=== PATIENT | female | born 1980 | race Caucasian/White ===

== ENCOUNTER 2021-03-02 09:52 | Emergency (ER) | payer OTHER ==
[~2021-03-02] VITALS: Ht 161.3 cm; Wt 47.7 kg
[2021-03-02 10:15] VITALS: BP 123/74
[2021-03-02] MEDS ORDERED: NAPROXEN 500 MG TABLET PO STA (10:37)
[2021-03-02] MEDS ORDERED: HYDROcodone/APAP 5/325MG 1 TAB TABLET PO ONE (10:45)
--- NOTE | 2021-03-02 10:47 | PHYS DOC ---
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 Patient describes the pain as sharp and constant worse on touching the lateral aspect of the ankle as well as weightbearing. Denies anything relieving the pain (MELITON CROCKETT [place] [employer] HAND[employer] SUPERVISOR) Review of Systems: Review of Systems: Constitutional: Denies fever or chills. [] Musculoskeletal: Reports left ankle pain Integument: Denies rash. [] Neurologic: Denies headache, focal weakness or sensory changes. [] = Psychiatric: Denies depression or anxiety. [] (MELITON CROCKETT GENER[employer] HANDLING SUPERVISOR) Heart Score: C/O Chest Pain: N/A Risk Factors: Risk Factors: DM, Current or recent (<one month) smoker, HTN, HLP, family history of CAD, obesity. 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[place] [employer] SUPERVISOR) Current Medications: Current Medications Medications (Trade) Dose Ordered Sig/Alberto Start Time Stop Time Status Last Admin Dose Admin Acetaminophen/ Hydrocodone Bitart (Lortab 5/325) 1 tab 1X ONCE 03/02/21 10:45 03/02/21 10:46 Naproxen (Naprosyn) 500 mg 1X STAT 03/02/21 10:37 03/02/21 10:42 DC (MELITON CROCKETT [place] [employer] SUPERVISOR) Allergies: Allergies: Allergies Coded Allergies Type Severity Reaction Last Updated Verified No Known Drug Allergies 01/13/14 No (MARIELADANIEMELITON Guadalupe APRN) Physical Exam: PE: Constitutional: Well developed, well nourished, no acute distress, non-toxic a ppearance. Skin: Warm, dry, no erythema, no rash. [] Extremities: Left lower extremity with no obvious deformity. No bruising, no ecchymosis, soft tissue swelling noted on the left lateral ankle. Tenderness on palpation of the left lateral ankle. No tenderness on the base of the fifth metatarsal of the left foot, no tenderness on the navicular bone. +2 left pedal pulse. Cap refill less than 2 seconds to left toes. Full range of motion to the left toes, limited range of motion to the left ankle. Neurologic: Alert and oriented X 3, normal motor function, normal sensory function, no focal deficits noted. [] Psychologic: Affect normal, judgement normal, mood normal. [] (MELITON CROCKETT APRN) Current Patient Data: Vital Signs: Vital Signs Date Time Temp Pulse Resp B/P (MAP) Pulse Ox O2 Delivery O2 Flow Rate FiO2 03/02/21 10:15 98.6 69 16 123/74 (90) 98 Room Air 98.6 (MELITON CROCKETT APRN) EKG: EKG: [] (MELITON CROCKETT APRN) Radiology/Procedures: Radiology/Procedures: []PROCEDURE: FOOT LEFT 3V EXAM: Left ankle, 3 views; left foot, 3 views. HISTORY: Pain. COMPARISON: None. FINDINGS: 3 views of the left foot and ankle are obtained. There is no acute fracture, dislocation or subluxation. There is an incidental accessory navicular. The ankle mortise is intact. IMPRESSION: No acute osseous finding. Electronically signed by: Sabrina Jeffery MD (03/02/2021 11:01 AM) [facility] DICTATED and SIGNED BY: SABRINA JEFFERY MD DATE: 03/02/21 [id number] (MELITON CROCKETT APRN) Course & Med Decision Making: Course & Med Decision Making Pertinent Labs and Imaging studies reviewed. (See chart for details) This is a 40-year-old female patient presented to the ED today with left ankle pain after missing a step and rolling the ankle. Left foot and left ankle xrays are negative for any acute findings. Alexi bandage and Aircast applied to the left foot/ankle by the ED RN, neurovascular exam is intact, ice elevation encouraged, crutches provided. Discharged home. OTC pain relievers. Ortho for follow-up (MELITON CROCKETT APRN) Dragon Disclaimer: Dragon Disclaimer: This electronic medical record was generated, in whole or in part, using a voice recognition dictation system. (MELITON CROCKETT APRN) Departure Departure Impression: Primary Impression: Left ankle sprain Qualified Codes: S93.402A - Sprain of unspecified ligament of left ankle, initial encounter Additional Impression: Sprain of left foot Qualified Codes: S93.602A - Unspecified sprain of left foot, initial encounter Disposition: HOME / SELF CARE / HOMELESS Condition: STABLE Referrals: ANA TRIPP MD Follow-up in 1 to 2 weeks if pain persists Patient Instructions: Ankle Sprain, Foot Sprain Additional Instructions: You were seen for left foot and left ankle pain, left foot and left ankle x-rays are negative for any acute findings, you likely have a sprain. Try to wrap the foot and ankle with the Alexi bandage provided and wear the Aircast. You can bear weight to the left lower extremity as tolerated. Take [id number] pain relievers as needed especially anti-inflammatories. Follow-up with orthopedic doctor or your own doctor in 1 week if pain persist Attending Signature Attending Signature I have participated in the care of this patient and I have reviewed and agree with all pertinent clinical information above including history, exam, and recommendations. (MARCIA HUITRON DO) MELITON CROCKETT APRN March 02, 2021 10:47 MARCIA HUITRON DO March 02, 2021 17:39
--- NOTE | 2021-03-02 11:04 | RAD ---
EXAM: Left ankle, 3 views; left foot, 3 views. HISTORY: Pain. COMPARISON: None. FINDINGS: 3 views of the left foot and ankle are obtained. There is no acute fracture, dislocation or subluxation. There is an incidental accessory navicular. The ankle mortise is intact. IMPRESSION: No acute osseous finding. Electronically signed by: Safia Martinez MD (03/02/2021 11:01 AM) [facility]
== END 2021-03-02 11:38 | disposition home or self-care (01) ==
LOC: ER 09:52
DX: S93.402A Sprain of unspecified ligament of left ankle, initial encounter (principal); S93.602A Unspecified sprain of left foot, initial encounter; J45.909 Unspecified asthma, uncomplicated; F17.200 Nicotine dependence, unspecified, uncomplicated; X50.9XXA Other and unspecified overexertion or strenuous movements or postures, initial encounter; Y93.89 Activity, other specified; Y92.89 Other specified places as the place of occurrence of the external cause; Y99.8 Other external cause status
CPT/HCPCS: 29515; 73610; 73630; 99284

== ENCOUNTER → 2022-01-24 | Outpatient (CLI) | payer OTHER ==
[2022-01-24 12:34] LABS: BASO % 1 % (0-3); EOS # 0.1 x10^3/uL (0.0-0.7); EOS % 1 % (0-3); HEMATOCRIT 43.1 % (36.0-47.0); HEMOGLOBIN 14.6 g/dL (12.0-15.5); LYMPH # 1.8 x10^3/uL (1.0-4.8); LYMPH % 27 % (24-48); MEAN CORPUSCULAR HEMOGLOBIN 33 pg (25-35); MEAN CORPUSCULAR HGB CONC 34 g/dL (31-37); MEAN CORPUSCULAR VOLUME 97 fL (79-100); MONO # 0.6 x10^3/uL (0.0-1.1); MONO % 9 % (0-9); NEUT # 4.1 x10^3/uL (1.8-7.7); NEUT % 62 % (31-73); PLATELET COUNT 244 x10^3/uL (140-400); RED BLOOD COUNT 4.45 x10^6/uL (3.50-5.40); WHITE BLOOD COUNT 6.6 x10^3/uL (4.0-11.0)
[2022-01-24 12:53] LABS: ALBUMIN 4.2 g/dL (3.4-5.0); ALBUMIN/GLOBULIN RATIO 1.2 (1.0-1.7); CALCIUM 9.1 mg/dL (8.5-10.1); CREATININE 0.6 mg/dL (0.6-1.0); GFR 110.2; POTASSIUM 3.8 mmol/L (3.5-5.1); TOTAL BILIRUBIN 0.8 mg/dL (0.2-1.0); TOTAL PROTEIN 7.7 g/dL (6.4-8.2)
--- NOTE | 2022-01-24 12:54 | RAD ---
XR CHEST 2V INDICATION: Preoperative: . COMPARISON STUDY: None. FINDINGS: Lungs: Normal lung volume. No pulmonary mass or consolidation. The tracheobronchial tree and hilar st ructures are normal. Pleura: No pleural effusion or pneumothorax. Heart and Mediastinum: The cardiomediastinal silhouette is normal. The great vessels of the thorax ar e normal. Bones and Soft Tissues: The bones and soft tissues are within normal limits. IMPRESSION: No acute cardiopulmonary process. Electronically signed by: Rocco Cornelius MD (01/24/2022 12:51 PM) [id number]
[2022-01-24 13:22] LABS: BACTERIA,URINE 0 /HPF (0-FEW); RBC,URINE 0 /HPF (0-2); WBC,URINE OCC /HPF (0-4)
== END ==
LOC: SURGPAT 11:46
PROVIDERS: ATTEND Obstetrics & Gynecology
DX: Z01.818 Encounter for other preprocedural examination (principal); F17.200 Nicotine dependence, unspecified, uncomplicated
CPT/HCPCS: 36415; 71046; 80053; 81001; 85025

== ENCOUNTER 2022-01-29 06:04 | Observation (INO) | payer OTHER ==
[2022-01-24 12:39] VITALS: BP 128/71
[2022-01-29] VITALS (9 sets, daily range): BP systolic 100–129; BP diastolic 56–82
[~2022-01-29] VITALS: Ht 160 cm; Wt 54.5 kg
[~2022-01-29 06:04] MED LIST: HYDROmorphone 2 MG/ML INJ. IVP PRN; IV RINGERS,LACTATED 1000ML 1,000 ML IV SCH; MORPHINE SULFATE 2 MG/ML INJ. IVP PRN; PROCHLORPERAZINE 10 MG/2 ML VIAL. IVP PRN; fentaNYL PF VIAL 100 MCG/2 ML VIAL IVP PRN
[2022-01-29] MEDS ORDERED: ROCURONIUM 50 MG/5 ML VIAL. ONE (06:46)
[2022-01-29] MEDS ORDERED: fentaNYL PF VIAL 100 MCG/2 ML VIAL ONE (06:47)
[2022-01-29] MEDS ORDERED: ESTROGENS, CONJ VAGINAL CREAM 30GM TUBE. ONE (07:04)
[2022-01-29] MEDS ORDERED: INDIGOTINDISULFONATE SODIUM 40 MG/5 ML AMPUL. ONE (07:04)
[2022-01-29] MEDS ORDERED: BUPIVACAINE-EPI 0.25% 30 ML VIAL KIT. ONE (07:04)
[2022-01-29] MEDS ORDERED: PROPOFOL 10 MG/ML (20ML) VIAL. IV ONE (07:15)
[2022-01-29] MEDS ORDERED: ONDANSETRON PF 4 MG/2 ML VIAL. ONE (07:15)
[2022-01-29] MEDS ORDERED: DEXAMETHASONE SOD PHOS 4 MG/ML VIAL ONE (07:15)
[2022-01-29] MEDS ORDERED: GLYCOPYRROLATE 1 MG/5 ML VIAL. ONE (07:16)
[2022-01-29] MEDS ORDERED: NEOSTIGMINE METHYLSULFATE 5 MG/5 ML SYRINGE. ONE (07:17)
[2022-01-29] MEDS ORDERED: HYDROmorphone 2 MG/ML INJ. ONE (08:09)
[2022-01-29] MEDS ORDERED: ceFAZolin SODIUM IV Push 1 GM VIAL. IVP ONE (11:08)
[2022-01-29] MEDS ORDERED: diphenhydrAMINE HCL 25 MG CAPSULE PO PRN (11:30)
[2022-01-29] MEDS ORDERED: NALOXONE 0.4 MG/ML VIAL. IV PRN (11:30)
[2022-01-29] MEDS ORDERED: ONDANSETRON PF 4 MG/2 ML VIAL. IV PRN (11:30)
[2022-01-29] MEDS ORDERED: LACTULOSE 20 GM/30 ML SOLUTION. PO PRN (11:30)
[2022-01-29] MEDS ORDERED: ZOLPIDEM 5 MG TABLET. PO PRN (11:30)
[2022-01-29] MEDS ORDERED: MAG HYDROX/ALUMINUM HYD/SIMETH 30 ML ORAL.SUSP PO PRN (11:30)
[2022-01-29] MEDS ORDERED: diphenhydrAMINE 50 MG/ML VIAL IV PRN (11:30)
[2022-01-29] MEDS ORDERED: CALCIUM CARBONATE 500 MG TAB.CHEW PO PRN (11:30)
[2022-01-29] MEDS ORDERED: SIMETHICONE 80 MG TAB.CHEW PO PRN (11:30)
[2022-01-29] MEDS ORDERED: MAGNESIUM HYDROXIDE 2,400 MG/30 ML ORAL.SUSP. PO PRN (11:30)
[2022-01-29] MEDS ORDERED: HYDROcodone/APAP 5/325MG 1 TAB TABLET PO PRN (11:30)
[2022-01-29] MEDS ORDERED: 0.9 % SODIUM CHLORIDE 10 ML DISP.SYRIN. IV PRN (11:30)
--- NOTE | 2022-01-29 11:38 | PDOC4 ---
OPERATIVE NOTE Pre-Op Diagnosis: Cystotomy Post-Op Diagnosis: Cystotomy Procedure Performed: 1. Cystoscopy 2. Bilateral ureteral catheter placement 3. Laparoscopic remair of bladder laceration Surgeon: Sameer Davies MD Anesthesia Type: Genaral Blood Loss: None Specimans Obtained: None Findings: Small bladder laceration left dome Complications: None Operative Note: Patient on operating room table in low lithotomy position and slight Trendelenburg. Laparoscopic ports are in place from previously done hysterectomy. Using 21 Ugandan rigid cystoscope cystoscopy was performed. I cannot appreciate obvious defect at the bladder just faint abnormality on the left side of the dome. It appears to be very small. 0.035 guidewire was placed into left ureter followed by 5 Ugandan open-ended catheter. We can observe catheter passing through intra-abdominal portion of the ureter without difficulty. Catheter was then removed from the left ureter. In identical fashion 5 Ugandan open-ended catheter was placed into the right ureter which appeared to be intact as well. Open-ended catheters were removed. 16 Ugandan Rod catheter was replaced. Left 5 mm laparoscopic port was exchanged to a 12 mm laparoscopic port and using 3-0 chromic catgut sutures obvious bladder defect at the dome of the bladder was closed in 2 layers. Bladder was distended to its capacity with irrigation. No leak of irrigation fluid was observed. 16 Ugandan Adithya-Redman drain was placed in the dependent portion of the pelvis serial right lateral laparoscopic port. 12 mm laparoscopic port was removed in that area narrowed down with 2 interrupted Vicryl sutures using a Sameer-Benjamin device. Patient was returned to [employer] team for completion of skin closure. Drain was fixed to the skin was nylon sutures. SAMEER DAVIES MD Jan 29, 2022 11:38
--- NOTE | 2022-01-29 11:52 | PDOC4 ---
BRIEF OPERATIVE NOTE Date: Jan 29, 2022 Pre-Op Diagnosis pelvic pain, dysmenorrhea, menorrhagia Post-Op Diagnosis same plus noticed incidential cystotomy so intraoperative urology consult for repair of bladder Procedure Performed LAVH/bilateral salpingectomy/cystoscopy Surgeon Dr. Johanna Bain; then intraoperative consult with urology Dr. Davies Sheet Metal Superintendent СВЕТЛАНА Hernández Anesthesiologist Dr. Gunderson Anesthesia Type: General Blood Loss 50cc IV Fluid see anesthesia Urine Output 150cc clear via lopez but bag with air in it at end of case Specimens Obtained cervix, uterus, bilateral tubes Findings omental abdominal wall adhesions, scarring of right tube; normal uterus, thinned bladder wall; incidental cystotomy noted after going back and looking abdominally and using cystoscope to watch in fill the bladder Complications none, noted incidental cystotomy at end of case when lopez bag had air; discovered thinned wall where bladder peeled off uterus at left upper dome area; normal ureters, urology called to fix laparoscopically Operative Note [id number] JOHANNA BAIN MD Jan 29, 2022 11:52
--- NOTE | 2022-01-29 12:49 | NUR ---
Received patient from PACU. Patient awake but drowsy. \assessment foen . Patient denies pain just feels like she needs to void. Rod is draining at this time. Plan discussed
[2022-01-29] MEDS: MORPHINE SULFATE 2 MG/ML INJ. IV PRN ×2 (13:58→17:07)
--- NOTE | 2022-01-29 16:34 | OP ---
DATE OF SURGERY: 01/29/2022 PREOPERATIVE DIAGNOSES: Pelvic pain, dysmenorrhea, menorrhagia, prior sections, prior Essure sterilization, desiring coils out. POSTOPERATIVE DIAGNOSES: Pelvic pain, dysmenorrhea, menorrhagia, prior sections, prior Essure sterilization, desiring coils out plus an incidental cystotomy that was noted intraoperatively. Upon closing with the Rod bag full of air, a cystoscopy was performed to insufflate the bladder and find the opening at the left dome of the bladder. Intraoperative consultation with Urology, Dr. Davies was done for repair of the bladder. Please see his operative note for that. PROCEDURE: Laparoscopic-assisted vaginal hysterectomy, bilateral salpingectomy and cystoscopy. SURGEON: Johanna Bain MD. BUSINESS PROPOSAL REP: СВЕТЛАНА Carrasco ANESTHESIOLOGIST: Tobin Gunderson MD ANESTHESIA: General. BLOOD LOSS: 50 mL. URINE OUTPUT: Initially was 150 mL clear via Rod, but again that is when the bag was noted to be full of air at the end of the case, so went back in to discover the opening in the dome of the left side of the bladder. SPECIMEN: Cervix, uterus, bilateral tubes. FINDINGS: She had omental anterior abdominal wall adhesions that were taken down, scarring of the right fallopian tube. Normal uterus. The bladder was scarred custodial up the anterior of the uterus that was taken down and there was a thin bladder wall from prior sections and then again the incidental cystotomy that was noted after going back and looking abdominally using the cystoscope after finding the Rod catheter bag full of air at the end. COMPLICATIONS: None other than that incidental cystotomy that was noted as above. DESCRIPTION OF PROCEDURE: This patient was taken to the operating room where general anesthesia was placed. The patient was placed in dorsal lithotomy position in [facility]. The patient's abdomen and vagina were both prepped and draped in the normal sterile fashion and a Rod catheter had been inserted under sterile technique. Upon my arrival, a timeout was performed. Once everyone agreed on the patient, the site, the procedure, the antibiotics, the procedure was initiated. A bivalve speculum was placed in the patient's vagina. A single-tooth tenaculum was used to grasp the anterior lip of the cervix. 10 mL of 0.25% Marcaine with epinephrine was used to circumferentially inject around the cervix for both hemodissection and hemostatic purposes later. The Valtchev uterine manipulator was placed through the endocervical os, locked on the single tooth tenaculum and the bivalve speculum was then removed. Top gloves were discarded and changed. Attention was then turned to the abdomen where a small infraumbilical skin incision was made with the scalpel. A curved Melita was used to dissect through the subcuticular layer to the fascia. The 5 mm Visiport bladeless trocar was used to directly enter the abdominal cavity. Opening patient pressure was 2-3 mmHg. Carbon dioxide gas was used to appropriately insufflate the abdominal cavity to maintain a pressure of 15 mmHg. Overhead lights were dimmed and Trendelenburg position was obtained. Left and right lower quadrant ports were placed under direct visualization where there were no adhesions transilluminating the abdominal wall, finding an area clear of any vasculature, making a small incision and placing the 5 mm atraumatic trocars and under direct visualization, 4-5 mL of air was placed in the trocar cuff on both sides. The camera was then moved laterally to look at the umbilical port as well and once it was clear, it was also insufflated with the 4-5 mL of air in the trocar cuff. Once this was done, the right upper quadrant was grossly normal. Bowel was grossly normal. Omental adhesions were taken down with the LigaSure. They were all omental. This allowed us to get to the uterus and ovaries. She had a retroverted uterus, normal left tube and ovary, normal right ovary, right tube was somewhat scarred over to the sidewall and back, but this was easily taken down, both ureters were seen coursing low in the pelvis peristalsing clearly out of the way and low, so the right tube and ovary was elevated going above the ovary, below the tube doing a salpingectomy taking that adhesion down, getting the tube crossing the right uteroovarian pedicle leaving the ovary per patient request with the LigaSure, cauterizing and cutting, then crossing the right round ligament as well, cauterizing and cutting. At this point, the left tube and ovary were elevated. Again, the ureter was clearly seen going above the ovary, below the tube with the LigaSure, cauterizing and cutting, doing a salpingectomy, crossing the left uteroovarian pedicle, cauterizing and cutting and the left round ligament, cauterizing and cutting. The bladder was elevated with the [place] and the monopolar hook was used to go across and take down the bladder sharply from the uterus to the bladder and it was peeled down using the Maryland to peel it down. Once it was down, the vessels were obtained on both sides and going down, hugging the uterus and making sure the bladder was down the whole time, hugging the uterus, getting the vasculature on the left side. Once this was done, the right uterine vessels were obtained and then hugging posteriorly on the cervix and uterus, going through the cardinal and broad ligaments, cauterizing and cutting. The uterus was completely free and blanched. There was no active bleeding, so all instruments were removed from the abdomen and attention was turned vaginally. At this point, the Valtchev and single tooth were removed. A weighted speculum was placed in the patient's vagina. Overhead lights were back on. Thyroid Ujng clamps were placed on the anterior and posterior lips of the cervix, respectively. A scalpel was used to make a circumferential incision in the cervix. An open Ray-Chelsie 4 x 4 was used to gently push up the anterior bladder peritoneum. The anterior cul-de-sac was entered sharply with the Metzenbaum scissors and the curved Yves was placed here and the Ray-Chelsie was passed back off. The cervix was elevated and the posterior cul-de-sac was sharply entered with curved Alberto scissors and extended bilaterally. A #0 Vicryl stitch was used to secure the posterior peritoneum here to the vaginal cuff. It was tagged with a curved Melita clamp and the needle was cut and passed off. The short weighted vaginal speculum was removed and replaced with the long weighted Jacinta speculum in the posterior cul-de-sac. At this point, curved Alberto clamps x2 were placed on the patient's left uterosacral ligament where they were doubly clamped with curved Heaneys, cut with curved Alberto scissors and suture ligated x2 with 0 Vicryl. Second one was taken through the vaginal cuff, securing uterosacral ligament to the vaginal cuff. This was done exactly the same on the right side, double clamping the uterosacrals with curved Alberto's, cutting with curved Alberto scissors and suture ligating x2 with 0 Vicryl, taking the second one through the vaginal cuff the vaginal cuff. At this point, the right angle Mixter was taken around the remaining pedicle on the left side and the vaginal LigaSure was used to cauterize and cut the remaining pedicle. The cervix, uterus, bilateral tubes were delivered in total. There was nothing remaining on the right side. The long Allis was used to grasp the anterior bladder peritoneum. The long Jacinta speculum was removed and replaced with the short weighted vaginal speculum in the vagina. A sponge stick was used to examine the pedicles. Once they were assured to be dry, 2-0 Vicryl was taken through the anterior bladder peritoneum, left uterosacral ligament, posterior peritoneum and right uterosacral ligament, thus closing the peritoneum in a pursestring like fashion. The cuff was closed in an anterior to posterior running locked fashion with a full length 2-0 Vicryl and it was tied to the posterior cuff tag. There was no bleeding. Everything was hemostatic. All counts were correct x2 by OR personnel below. All gloves were discarded and changed and attention was turned back above for a second look. Overhead lights were re-dimmed. The patient was placed in Trendelenburg. Gas was reinsufflated to look at the vaginal cuff. Copious irrigation revealed hemostasis. Right and left pericolic gutters were clear. Tip of the appendix was normally seen. Right upper quadrant was grossly normal. Tisseel was placed over the vaginal cuff. Both ovaries were hemostatic and dry. Everything actually looked great, so we deflated the cuffs on all 3 trocars. Right and left lower quadrant ports were removed under direct visualization. Gas was released from the umbilical port and just as I was getting ready to leave and I was asking urine output and blood loss, there was clear bladder and the bladder bag, but it was full of air. So I went ahead and put back in the trocars, looked again, there was no extravasation of urine, nothing collecting in the abdominal cavity, but clearly they emptied it and it was refilling full of air, so there had to have been some sort of an opening to allow the laparoscopic gas to get into the bladder bag, so I got a cystoscopy, performed cystoscopy and originally, the trigone was seen. Ureter openings were seen. Bladder bubble was seen, but I had Laurie above looking laparoscopically and it was not until the bladder was completely distended at the left dome of the bladder that it was obvious where the clear fluid was coming from at the dome of the bladder. At this point, Urology was called in to help laparoscopically fix this opening. It looked like it was from where the bladder was peeled down off the uterus very high up on the left dome, so everything was taken out and the patient was allowed to sit because unfortunately it took, you know, 40-50 minutes for them to come here and arrive and start operating, went out and discussed this with her mother in the waiting room, so she was aware of what was going on and that the patient was stable and that we were waiting for Urology. Once Urology got here, he did do the laparoscopic suturing with chromic. Please see his operative note. He did have to replace my left lower quadrant port with a 10/12 instead of my 5. He did all this. He also used the laparoscopic suturing to close the fascia on that port when he took it out. Once he took it out and had used cautery, made sure that that was all hemostatic and he had put a drain through the right lower quadrant port and CHARY drain. We had that out and we had deflated it and taken all the other ports out, then closed the ports at the end with Monocryl and put a drain stitch on that right side. Obviously, the Rod catheter was placed back in after his cystoscopy. He had put stents in but removed them, that is all per his note and the bladder catheter will be left in and she will be on antibiotics for 10-14 days, but like I said Monocryl was used to close the laparoscopic ports after he had closed that left one with Vicryl under direct visualization and the port sites had been injected upon insertion , so a total of 16 mL of local 10 below and 6 above was used. Once this was all done, the patient tolerated the procedure well. She was awakened from anesthesia and has been brought to recovery room in stable condition. JASBIR/ANNE/ROBERTA FIGUEREDO: Gala TID: [id number]
[2022-01-29] MEDS: oxyCODONE/APAP 5/325 1 TAB TABLET PO PRN (21:01)
[2022-01-29] MEDS: NITROFURANTOIN MONOHYD/M-CRYST 100 MG CAPSULE. PO SCH (21:01)
[2022-01-29] MEDS: OXYBUTYNIN CHLORIDE 5 MG TABLET PO SCH (22:50)
[2022-01-30 01:30] VITALS: BP 122/62
[2022-01-30 06:47] VITALS: BP 111/62
[2022-01-30] MEDS: oxyCODONE/APAP 5/325 1 TAB TABLET PO PRN ×4 (06:52→23:47)
[2022-01-30 08:13] LABS: CALCIUM 8.2 mg/dL (8.5-10.1); CREATININE 0.6 mg/dL (0.6-1.0); GFR 110.2; POTASSIUM 4.2 mmol/L (3.5-5.1)
[2022-01-30 08:28] LABS: HEMATOCRIT 35.8 % (36.0-47.0); HEMOGLOBIN 11.9 g/dL (12.0-15.5); RED BLOOD COUNT 3.61 x10^6/uL (3.50-5.40); RED CELL DISTRIBUTION WIDTH 12.9 % (11.5-14.5); WHITE BLOOD COUNT 9.4 x10^3/uL (4.0-11.0)
[2022-01-30] MEDS: OXYBUTYNIN CHLORIDE 5 MG TABLET PO SCH ×3 (08:52→21:23)
[2022-01-30] MEDS: NITROFURANTOIN MONOHYD/M-CRYST 100 MG CAPSULE. PO SCH ×2 (08:52→21:24)
--- NOTE | 2022-01-30 11:37 | PDOC ---
SURGICAL PROGRESS NOTE DATE: 01/30/22 TIME: 11:31 Subjective doing ok. Sore and slow to move. Scant VB. Main complaint was bladder spasms last night but the oxybutynin helped a lot and the CHARY drain bothers her too bc she likes to sleep on her side Good UOP via catheter. tolerating PO. Vital Signs Vital Signs Date Time Temp Pulse Resp B/P (MAP) Pulse Ox O2 Delivery O2 Flow Rate FiO2 01/30/22 08:38 Room Air 01/30/22 06:52 18 97 10.0 01/30/22 06:47 99.0 68 111/62 (78) 99.0 I&O Intake and Output 01/30/22 07:00 Intake Total 2510 ml Output Total 2080 ml Balance 430 ml Intake Oral 910 ml IV Total 1600 ml Output Urine Total 1550 ml Drainage Total 80 ml Estimated Blood Loss 450 ml PATIENT HAS A LOPEZ: Yes General: Alert, Oriented X3, Cooperative, mild distress HEENT: Atraumatic Heart: Regular rate Abdomen: Soft, Other (port sites c/d/i; CHARY with scant serosanguous fluid present in it) Extremities: No clubbing, No cyanosis, No edema, No tenderness/swelling Skin: No rashes, No breakdown Neuro: Normal gait, Normal speech Psych/Mental Status: Mental status NL, Mood NL Labs Laboratory Tests Test 01/29/22 06:15 01/29/22 06:20 01/30/22 07:30 POC SARS CoV-2 Antigen Negative (NEGATIVE) Bedside Urine HCG, Qualitative Hcg negative (Negative) White Blood Count 9.4 x10^3/uL (4.0-11.0) Red Blood Count 3.61 x10^6/uL (3.50-5.40) Hemoglobin 11.9 g/dL (12.0-15.5) Hematocrit 35.8 % (36.0-47.0) Mean Corpuscular Volume 99 fL (79-100) Mean Corpuscular Hemoglobin 33 pg (25-35) Mean Corpuscular Hemoglobin Concent 33 g/dL (31-37) Red Cell Distribution Width 12.9 % (11.5-14.5) Platelet Count 205 x10^3/uL (140-400) Sodium Level 139 mmol/L (136-145) Potassium Level 4.2 mmol/L (3.5-5.1) Chloride Level 108 mmol/L (98-107) Carbon Dioxide Level 23 mmol/L (21-32) Anion Gap 8 (6-14) Blood Urea Nitrogen 7 mg/dL (7-20) Creatinine 0.6 mg/dL (0.6-1.0) Estimated GFR (Cockcroft-Gault) 110.2 Glucose Level 112 mg/dL (70-99) Calcium Level 8.2 mg/dL (8.5-10.1) Laboratory Tests Test 01/30/22 07:30 White Blood Count 9.4 x10^3/uL (4.0-11.0) Red Blood Count 3.61 x10^6/uL (3.50-5.40) Hemoglobin 11.9 g/dL (12.0-15.5) Hematocrit 35.8 % (36.0-47.0) Mean Corpuscular Volume 99 fL (79-100) Mean Corpuscular Hemoglobin 33 pg (25-35) Mean Corpuscular Hemoglobin Concent 33 g/dL (31-37) Red Cell Distribution Width 12.9 % (11.5-14.5) Platelet Count 205 x10^3/uL (140-400) Sodium Level 139 mmol/L (136-145) Potassium Level 4.2 mmol/L (3.5-5.1) Chloride Level 108 mmol/L (98-107) Carbon Dioxide Level 23 mmol/L (21-32) Anion Gap 8 (6-14) Blood Urea Nitrogen 7 mg/dL (7-20) Creatinine 0.6 mg/dL (0.6-1.0) Estimated GFR (Cockcroft-Gault) 110.2 Glucose Level 112 mg/dL (70-99) Calcium Level 8.2 mg/dL (8.5-10.1) I have reviewed the following labs, vitals, nursing Cardiovascular: No pertinent hx Pulmonary: No pertinent hx GI: No pertinent hx Heme/Onc: No pertinent hx Psych: No pertinent hx Infectious disease: No pertinent hx Renal/: No pertinent hx Endocrine: No pertinent hx Assessment/Plan POD#1 s/p LAVH/bilateral salpingectomy, indicetal cystotomy noted with cystoscope performed then intraoperative consult for repair of bladder routine PO care d/c to home if ok with urology currently awaiting CHARY fluid creatinine level and them to see her; per urologist yesterday said if creat. is normal and not urine, should pull CHARY drain and let go home NPV x 6 weeks light/limited activity x 2 weeks leg bag teaching, catheter in for 2 weeks, voiding cytogram prior to pulling lopez in 2 weeks will give macrobid and oxybutynin for in dwelling catheter already has post op appt scheduled NO driving on narcotic pain meds already has hydrocodone filled at home ok for OTC ibuprofen, prn if no contraindication call or return sooner if any other questions or concerns not limited to but including pain unrelieved with pain meds, increased or unexplaned VB or T>100.4 Justicifation of Admission Dx: Justifications for Admission: Justification of Admission Dx: Yes NOMAN DEWEY MD Jan 30, 2022 11:37
[2022-01-30 12:19] VITALS: BP 119/77
--- NOTE | 2022-01-30 13:29 | PDOC ---
PROGRESS NOTE DATE OF SERVICE: DATE: 01/30/22 TIME: 13:26 CHIEF COMPLAINT: Bladder repair Tolerating Rod with clear yellow urine, having some mild abdominal pain CHARY with serosanguineous drainage. OBJECTIVE: Vital Signs: Vital Signs Date Time Temp Pulse Resp B/P (MAP) Pulse Ox O2 Delivery O2 Flow Rate FiO2 01/30/22 12:26 18 Room Air 01/30/22 12:19 97.7 57 18 119/77 (91) 97 Room Air 97.7 01/30/22 08:38 Room Air 01/30/22 08:00 Room Air 01/30/22 06:52 18 97 Room Air 10.0 01/30/22 06:47 99.0 68 111/62 (78) Room Air 99.0 01/30/22 01:30 99.0 60 122/62 (82) 97 Room Air 10.0 99.0 01/30/22 01:15 97 Room Air 10.0 01/29/22 23:00 97 Room Air 10.0 01/29/22 21:36 Room Air 01/29/22 21:01 18 97 Room Air 10.0 01/29/22 20:41 98.7 58 129/82 (98) 97 Room Air 10.0 98.7 01/29/22 17:37 20 01/29/22 17:07 20 Room Air 01/29/22 15:40 98.1 59 20 110/68 (82) 97 98.1 01/29/22 14:30 98.3 66 20 102/66 (78) 100 98.3 01/29/22 14:30 66 20 102/66 (78) 100 01/29/22 14:28 18 01/29/22 14:09 61 18 101/61 (74) 98 01/29/22 13:58 18 01/29/22 13:30 98.5 76 106/61 (76) 96 98.5 I & O Intake and Output 01/30/22 07:00 Intake Total 2510 ml Output Total 2080 ml Balance 430 ml Intake Oral 910 ml IV Total 1600 ml Output Urine Total 1550 ml Drainage Total 80 ml Estimated Blood Loss 450 ml PHYSICAL EXAM: Physical Exam: General: Pleasant, no acute distress, well groomed Eyes: conjunctiva anicteric, eyes full range of motion ENT: moist oral mucosa, normal dentition Neck: Trachea midline, no masses Respiratory: unlabored breathing, not using accessory muscles, no crackles or wheezes : Rod draining clear yellow urine Abdomen: nontender, nondistended, no hepatosplenomegaly, no masses, incisions clean dry and intact, CHARY with serosanguineous output Skin: no rashes or skin lesions on visualized skin Psych: normal mood, affect. Alert and oriented x 3. LABS: Laboratory Tests Test 01/29/22 06:15 01/29/22 06:20 01/30/22 07:30 POC SARS CoV-2 Antigen Negative (NEGATIVE) Bedside Urine HCG, Qualitative Hcg negative (Negative) White Blood Count 9.4 x10^3/uL (4.0-11.0) Red Blood Count 3.61 x10^6/uL (3.50-5.40) Hemoglobin 11.9 g/dL (12.0-15.5) Hematocrit 35.8 % (36.0-47.0) Mean Corpuscular Volume 99 fL (79-100) Mean Corpuscular Hemoglobin 33 pg (25-35) Mean Corpuscular Hemoglobin Concent 33 g/dL (31-37) Red Cell Distribution Width 12.9 % (11.5-14.5) Platelet Count 205 x10^3/uL (140-400) Sodium Level 139 mmol/L (136-145) Potassium Level 4.2 mmol/L (3.5-5.1) Chloride Level 108 mmol/L (98-107) Carbon Dioxide Level 23 mmol/L (21-32) Anion Gap 8 (6-14) Blood Urea Nitrogen 7 mg/dL (7-20) Creatinine 0.6 mg/dL (0.6-1.0) Estimated GFR (Cockcroft-Gault) 110.2 Glucose Level 112 mg/dL (70-99) Calcium Level 8.2 mg/dL (8.5-10.1) MEDICATIONS: Current Medications Medications (Trade) Dose Ordered Sig/Alberto Start Time Stop Time Status Last Admin Dose Admin Acetaminophen/ Hydrocodone Bitart (Lortab 5/325) 2 tab PRN Q4HRS PRN 01/29/22 11:30 01/30/22 01:15 2 TAB Al Hydroxide/Mg Hydroxide (Mylanta Plus Xs) 30 ml PRN Q3HRS PRN 01/29/22 11:30 Bupivacaine HCl/ Epinephrine Bitart (Sensorcain-Epi 0.25% Kit) 30 ml STK-MED ONCE 01/29/22 07:04 01/29/22 07:04 DC 01/29/22 08:06 16 ML Calcium Carbonate/ Glycine (Tums) 500 mg PRN Q3HRS PRN 01/29/22 11:30 Cefazolin Sodium (Ancef) 1 gm STK-MED ONCE 01/29/22 11:08 01/29/22 11:09 DC Cefazolin Sodium/ Dextrose 50 ml @ 100 mls/hr 1X PREOP PRN 01/29/22 06:00 01/29/22 12:00 DC Dexamethasone Sodium Phosphate (Decadron) 4 mg STK-MED ONCE 01/29/22 07:15 01/29/22 07:16 DC Diphenhydramine HCl (Benadryl) 25 mg PRN Q6HRS PRN 01/29/22 11:30 Estrogens Conjugated (Premarin) 30 [place] STK-MED ONCE 01/29/22 07:04 01/29/22 07:04 DC Fentanyl Citrate (Fentanyl 2ml Vial) 100 mcg STK-MED ONCE 01/29/22 06:47 01/29/22 06:47 DC Glycopyrrolate (Robinul) 1 mg STK-MED ONCE 01/29/22 07:16 01/29/22 07:16 DC Hydromorphone HCl (Dilaudid) 2 mg STK-MED ONCE 01/29/22 08:09 01/29/22 08:10 DC Indigotindisulfonate Sodium (Indigo [place]) 40 mg STK-MED ONCE 01/29/22 07:04 01/29/22 07:05 DC Lactulose (Lactulose) 20 gm PRN Q12HR PRN 01/29/22 11:30 Magnesium Hydroxide (Milk Of Magnesia) 2,400 mg PRN Q12HR PRN 01/29/22 11:30 Morphine Sulfate (Morphine Sulfate) 2 mg PRN Q1HR PRN 01/29/22 11:30 01/29/22 17:07 2 MG Naloxone HCl (Narcan) 0.1 mg PRN Q2MIN PRN 01/29/22 11:30 Neostigmine [place] (Neostigmine Methylsulfate) 5 mg STK-MED ONCE 01/29/22 07:17 01/29/22 07:17 DC Nitrofurantoin Macrocrystals (Macrobid) 100 mg BID 01/29/22 21:00 01/30/22 08:52 100 MG Ondansetron HCl (Zofran) 4 mg PRN Q6HRS PRN 01/29/22 11:30 Oxybutynin Chloride (Ditropan) 5 mg [id number] 01/30/22 14:00 Oxycodone/ Acetaminophen (Percocet 5/325) 2 tab PRN Q4HRS PRN 01/29/22 11:30 01/30/22 12:26 2 TAB Potassium Chloride/Sodium Chloride 1,000 ml @ 125 mls/hr Q8H 01/29/22 15:00 01/29/22 00:00 125 MLS/HR Prochlorperazine Edisylate (Compazine) 5 mg PACU PRN PRN 01/29/22 06:00 01/29/22 13:00 DC Propofol (Diprivan) 200 mg STK-MED ONCE 01/29/22 07:15 01/29/22 07:16 DC Ringer's Solution 1,000 ml @ 30 mls/hr Q24H 01/29/22 06:00 01/29/22 17:59 DC 01/29/22 06:48 30 MLS/HR Rocuronium [place] (Zemuron) 50 mg STK-MED ONCE 01/29/22 06:46 01/29/22 06:47 DC Simethicone (Gas-X) 80 mg PRN AFTMEALHC PRN 01/29/22 11:30 Sodium Chloride (Normal Saline Flush) 3 ml QSHIFT PRN 01/29/22 11:30 Zolpidem Tartrate (Ambien) 5 mg PRN QHS PRN 01/29/22 11:30 ASSESSMENT & PLAN --Bladder repair Serum creatinine is 0.6. Awaiting CHARY creatinine results. If results match the serum creatinine, may discharge home and remove the CHARY drain. Patient is tolerating the Rod catheter. Patient to follow-up in 2 weeks with a cystogram outpatient. If cystogram normal, then can have Rod catheter removed. Patient to make an appointment with our office at [phone] Davies Discussed with Dr. Davies. SERGIO HENRIQUEZ Jan 30, 2022 13:29
--- NOTE | 2022-01-30 16:43 | NUR ---
RN called lab regarding time frame for expected results of the body fluid creatinine. RN was informed by pathology laboratory aide that the body fluid creatinine is a send out lab to [facility] and we should expect around 24hr before results. called and message left.
[2022-01-30 16:52] VITALS: BP 131/71
--- NOTE | 2022-01-30 17:56 | NUR ---
RN spoke with Dr. Conrad Bain about body fluid creatinine being a send out lab and that results will not be received until approximately 24hr per laboratory chemist. states to call Dr. Davies with [facility] and inform them. Addendum: 01/30/22 at 1757 by PAOLA LOPEZ RN [facility] reveles at this time.
--- NOTE | 2022-01-30 18:11 | NUR ---
ALAN returned page. Provider updated that this RN spoke with prosthetic lab technician who states the body fluid creatinine is a send out lab and we should receive results around 24hr. Provider requests this RN to call lab again and verify one more time when we may expect these lab results. Provider states it is usually the same day. Provider states to page back with creatinine value if RN is able to get the results tonight. Otherwise have tomorrow's RN page back with resulted value. Addendum: 01/30/22 at 1825 by PAOLA LOPEZ RN Typo: [facility].
--- NOTE | 2022-01-30 18:25 | NUR ---
This RN spoke with director of cath lab again. automotive technician looked up pt. information and states that the body fluid creatinine was sent out to [facility]. automotive technician states that we do not run chemistry on body fluids in house. RN to call Dr. Bain with update.
--- NOTE | 2022-01-30 18:33 | NUR ---
EMILY called Dr. Bain with update. informed that [facility] [place] contacted and lab verified again that the body fluid creatinine was a send out to [facility]. verbalized understanding. Addendum: 01/30/22 at 1844 by PAOLA LOPEZ RN MD request RN to attempt to contact [employer]. RN attempted contact. Lateral SV closed at this time.
[2022-01-30 21:29] VITALS: BP 109/62
[2022-01-31] VITALS: BP 118/53
[2022-01-31] MEDS: oxyCODONE/APAP 5/325 1 TAB TABLET PO PRN ×2 (04:55→13:37)
[2022-01-31 05:34] VITALS: BP 111/50
--- NOTE | 2022-01-31 05:36 | NUR ---
Patient had complaints of a full bladder. Bladder scanned with a total of 14ml.
--- NOTE | 2022-01-31 08:47 | PDOC ---
SURGICAL PROGRESS NOTE DATE: 01/31/22 TIME: 08:41 Subjective Doing well, better than yesterday. only complaint is she does not think the catheter is draining right Vital Signs Vital Signs Date Time Temp Pulse Resp B/P (MAP) Pulse Ox O2 Delivery O2 Flow Rate FiO2 01/31/22 06:00 18 Room Air 01/31/22 05:34 98.1 55 111/50 (70) 97 98.1 I&O Intake and Output 01/31/22 07:00 Intake Total 900 ml Output Total 2180 ml Balance -1280 ml IV Total 900 ml Output Urine Total 2150 ml Drainage Total 30 ml PATIENT HAS A BLACKMON: Yes General: Alert, Oriented X3, Cooperative, No acute distress HEENT: Atraumatic Heart: Regular rate Abdomen: Soft, Other (al port sites c/d/i, CHARY with scant serosanguous fluid present is all) Extremities: No clubbing, No cyanosis, No edema, No tenderness/swelling Skin: No rashes, No breakdown Neuro: Normal speech Psych/Mental Status: Mental status NL, Mood NL Labs Laboratory Tests Test 01/30/22 07:30 White Blood Count 9.4 x10^3/uL (4.0-11.0) Red Blood Count 3.61 x10^6/uL (3.50-5.40) Hemoglobin 11.9 g/dL (12.0-15.5) Hematocrit 35.8 % (36.0-47.0) Mean Corpuscular Volume 99 fL (79-100) Mean Corpuscular Hemoglobin 33 pg (25-35) Mean Corpuscular Hemoglobin Concent 33 g/dL (31-37) Red Cell Distribution Width 12.9 % (11.5-14.5) Platelet Count 205 x10^3/uL (140-400) Sodium Level 139 mmol/L (136-145) Potassium Level 4.2 mmol/L (3.5-5.1) Chloride Level 108 mmol/L (98-107) Carbon Dioxide Level 23 mmol/L (21-32) Anion Gap 8 (6-14) Blood Urea Nitrogen 7 mg/dL (7-20) Creatinine 0.6 mg/dL (0.6-1.0) Estimated GFR (Cockcroft-Gault) 110.2 Glucose Level 112 mg/dL (70-99) Calcium Level 8.2 mg/dL (8.5-10.1) Assessment/Plan POD#2 s/p LAVH/bilateral salpingectomy with notice of incidential cystotomy, intraoperative consult with urology to repair check leg bag and make sure functioning ambulate at least tid still awaiting body fluid creatinine for urology, if negative then d/c CHARY and will be discharged to home NPV x 6 weeks light/limited x 2 weeks call or return sooner for any other questions or concerns not limited to but including pain unrelieved with pain meds, increased or unexplained vb or T>100.4 already has pain meds ok to alternate otc ibuprofen keep scheduled follow up wrote for both macrobid and oxybutynin with indwelling catheter, keep for 2 weeks per urology then voiding cystogram prior to taking it out Justicifation of Admission Dx: Justifications for Admission: Justification of Admission Dx: Yes NOMAN DEWEY MD Jan 31, 2022 08:47
[2022-01-31] MEDS: OXYBUTYNIN CHLORIDE 5 MG TABLET PO SCH ×2 (09:15→14:48)
[2022-01-31] MEDS: NITROFURANTOIN MONOHYD/M-CRYST 100 MG CAPSULE. PO SCH (09:15)
[2022-01-31 13:00] VITALS: BP 126/76
[2022-01-31] MEDS ORDERED: PENICILLIN G K 5,000,000 UNIT in IV DEXTROSE 5% 100ML 100 ML IV ONE (13:15)
--- NOTE | 2022-01-31 16:30 | NUR ---
Body Fluid Creatinine results called to urology and Dr. Bain discharge orders after removal of CHARY drain. CHARY drain removed per RN, dressing applied to site.Pt. was given verbal and written discharge instructions. Pt. escorted per W/C with staff to hospital exit and placed in personal vehicle.
[2022-01-31 16:40] VITALS: BP 132/81
[2022-01-31] MEDS ORDERED: PENICILLIN G K 2,500,000 UNIT in IV DEXTROSE 5% 50 ML IV SCH (17:00)
--- NOTE | 2022-01-31 17:15 | PATHOLOGY ---
[facility] Accession Number: [id number] . 01 Material submitted: . uterus - UTERUS, CERVIX, BILATERAL TUBES . 01 Clinical history: . MENORRHAGIA, DYSMENORRHEA, LAUH, BILATERAL SALPINGECTOMY . 02 Diagnosis: Uterus and bilateral fallopian tubes, laparoscopic assisted vaginal hysterectomy with bilateral salpingectomy: - Chronic cervicitis with focal squamous metaplasia. - Benign inactive endometrium with focal glandular/stromal breakdown. - Presence of coils within lumen of proximal right and left fallopian tubes. - Congestion of bilateral fallopian tubes. - Cystic [place] rests of right fallopian tube. - Left paratubal cysts. (JPM:pit; 01/31/2022) [facility] 01/31/2022 1603 Local . 02 Comment: There is no atypia or evidence of malignancy. . 02 Electronically signed: . Yevgeniy Sanchez MD, Pathologist NPI- [id number] . 01 Gross description: . Fixative: Formalin Labeled: Uterus, cervix, bilateral tubes Specimen received: An intact uterus with attached cervix and bilateral fallopian tubes Uterus weight: 99 g (without adnexa) Uterus: Measures 9.0 cm from fundus to cervix, 5.5 cm from cornu to cornu and 4.7 cm from anterior to posterior Serosa: Fleming-pink, smooth and glistening Cervix: 3.3 x 2.7 cm Ectocervix: Fleming pink, displaying surgical artifact, centrally hemorrhagic and granular Cervical os: 1.3 x 0.3 cm, partially gaping Endocervix: Fleming-pink, spongy and unremarkable Endocervical canal: 3.4 cm, displaying a herringbone pattern Endometrial cavity: 3.3 x 1.2 cm Endometrium: Atrophic, pink-red, diffusely granular, measuring up to 0.1 cm in thickness Myometrium: Fleming-pink pink, vaguely trabeculated, measuring up to 1.9 cm in thickness received. Lesions/abnormalities: No discrete masses or lesions are grossly identified. Protruding from the left and right fallopian tube openings (into the uterine cavity) are 2 elongate metallic coils, measuring approximately 2.3 cm in length and 0.1 cm in diameter. . Right fallopian tube: 8.1 cm in length, 0.6 cm in diameter Right fallopian tube appearance: Fimbriated, pink-purple, serpiginous, smooth and glistening Right fallopian tube cut surface: Sectioning reveals an unremarkable pinpoint to stellate lumen. . Left fallopian tube: 7.0 cm in length, 0.3-0.6 cm in diameter Left fallopian tube appearance: Fimbriated, pink-purple, serpiginous, smooth and glistening Left fallopian tube cut surface: Sectioning reveals an unremarkable stellate lumen. . Photographs are obtained. Cemetery Counselor sections are submitted as follows: A1 anterior cervix A2 posterior cervix A3 anterior endomyometrium A4 posterior endomyometrium A5 right fallopian tube physician relations representative cross sections and bisected fimbriated end A5 left fallopian tube physician relations representative cross sections and bisected fimbriated end (JGG; 01/29/2022) [facility] 01/31/2022 1306 Local . 02 Pathologist provided ICD-10: N72, N85.8, N83.8, N92.0, N94.6 . 02 CPT . 868437 Specimen Comment: A courtesy copy of this report has been sent to [phone] Specimen Comment: Report sent to Performed at: [facility] [address] [facility] [address], [place] [id number] MD Angel Sanz MD Phone: [phone] Performed at: 02 [facility] [address] [place], [place] [id number] MD Yevgeniy Sanchez MD Phone: [phone]
== END 2022-01-31 16:48 | disposition home or self-care (01) ==
LOC: SURG 06:04 → 3 NORTH 11:33
PROVIDERS: ADMIT Obstetrics & Gynecology; ATTEND Obstetrics & Gynecology
DX: S37.23XA Laceration of bladder, initial encounter (principal); Z20.822 Contact with and (suspected) exposure to COVID-19; N94.6 Dysmenorrhea, unspecified; N32.89 Other specified disorders of bladder; K66.0 Peritoneal adhesions (postprocedural) (postinfection); N85.4 Malposition of uterus; R10.2 Pelvic and perineal pain; N92.0 Excessive and frequent menstruation with regular cycle; Z98.891 History of uterine scar from previous surgery; Z79.899 Other long term (current) drug therapy; Z98.890 Other specified postprocedural states; X58.XXXA Exposure to other specified factors, initial encounter; Y92.89 Other specified places as the place of occurrence of the external cause; Y93.89 Activity, other specified; Y99.8 Other external cause status
CPT/HCPCS: 36415; 51999; 52005; 58552; 80048; 81025; 82570; 85027; 86850; 86900; 86901; 88307; 96374; 96376; A4314; A4930; A6219; C1758; C1769; G0378; G0379; J0690; J1100; J1170; J2270; J2405; J2704; J2710; J3010; J3480; J3490; A4657